=== PATIENT | female | born 1945 | race Caucasian/White ===

== ENCOUNTER → 2017-07-24 | Outpatient (CLI) | payer MEDICARE ==
[~2017-07-24] MED LIST: ACYC400T4 PO; ASPI-496 PO; ATOR10TA PO; CHOL200074 PO; CINN500C2 PO; CYAN200014 PO; CYCL1DRO EACHEYE; GLUC1TAB27 PO; GUAI600T PO; IBUP1TAB PO; IBUP200C5 PO; LACT1CAP35 PO; LEVO50TA5 PO; MULT-230 PO; MULT-658 PO; OMEG1CAP24 PO; ON GUARD PO; POLY17PO5 PO; PROP40TA PO; PSEU30TA27 PO; SELE200T10 PO; VITA400T6 PO; [UNRECOGNIZED DRUG - OTHER] PO; nyquil PO
== END | disposition home or self-care (01) ==
LOC: CFH 14:03
PROVIDERS: ATTEND Nurse Practitioner Family
DX: N64.4 Mastodynia (principal); Z80.3 Family history of malignant neoplasm of breast
CPT/HCPCS: 76641; G0204

== ENCOUNTER 2019-01-17 11:28 | Outpatient (CLI) | payer MEDICARE ==
[~2019-01-17 11:28] MED LIST changes: +IBUP-1623 PO; -IBUP200C5 PO; -MULT-230 PO; +MULT-806 PO
[2019-01-17] MEDS ORDERED: LIDOCAINE-MPF 1%, 5ML ONE ×2 (11:49→11:53)
[2019-01-17] MEDS ORDERED: OMNIPAQUE 350 MG/ML, 100ML BOTTLE ONE (15:00)
== END 2019-01-17 23:59 | disposition home or self-care (01) ==
LOC: RAD 11:28 → EDSTATUS 13:00 → RAD 23:59
PROVIDERS: ATTEND Orthopaedic Surgery
DX: M25.711 Osteophyte, right shoulder (principal)
CPT/HCPCS: 73040; 73201; Q9967

== ENCOUNTER → 2019-03-28 | Outpatient (CLI) | payer MEDICARE | END | disposition home or self-care (01) | LOC: CFH 10:35 | PROVIDERS: ATTEND Family Medicine | DX: Z12.31 Encounter for screening mammogram for malignant neoplasm of breast (principal) | CPT/HCPCS: 77063; 77067 ==

== ENCOUNTER → 2020-04-23 | Outpatient (CLI) | payer MEDICARE | END | disposition home or self-care (01) | LOC: CFH 10:23 | PROVIDERS: ATTEND Family Medicine | DX: Z12.31 Encounter for screening mammogram for malignant neoplasm of breast (principal); M85.88 Other specified disorders of bone density and structure, other site; N95.8 Other specified menopausal and perimenopausal disorders | CPT/HCPCS: 76641; 77063; 77067; 77080 ==